=== PATIENT | female | born 1990 | race Caucasian/White ===

== ENCOUNTER 2017-07-03 09:47 | Day surgery (SDC) | payer SELFPAY ==
[~2017-07-03] VITALS: Ht 154.9 cm; Wt 72.6 kg
[~2017-07-03 09:47] MED LIST: ACET-819 PO; CIPR500T4 PO; CYCL10TA9 PO; DCS100C PO; FRS325T PO; IBUP-1780 PO; Ibuprofen PO; NAPR-243 PO; NAPR220C46 PO; NITR100C3 PO; PRD20T PO; PREN-117 PO; TRAM50TA2 PO
--- OUTSIDE RECORDS SUMMARY | 2017-07-03 09:53 | XMS REPORT ---
Author Author MALI SILVERIO [facility] Address [address] [place] [address] Care Team Providers Care Local Owner Operator Truck Driver Name Role Phone MALI SILVERIO Unavailable PROBLEMS Unknown Problems ALLERGIES Substance Reaction Event Type Date Status Tramadol-Acetaminophen Unknown Drug Allergy Oct, Active Hydrocodone Unknown Non Drug Allergy Oct, Active ENCOUNTERS Encounter Location Date Diagnosis [facility] [id number] [place] [address] [phone] Mar, Dental examination Z01.20 [facility] [place] [id number] [place] [address] [phone]- [phone] Feb, Bronchitis J40 [facility] [id number] [place] [address] [phone] Feb, Dental examination Z01.20 [facility] [id number] [place] [address] [phone] Dec, Dental examination Z01.20 [facility] [id number] [place] [address] [phone] Oct, Dental examination Z01.20 [facility] [place] [id number] [place] [address] [phone]- [phone] Oct, [facility] [id number] [place] [address] [phone] Sep, Dental examination Z01.20 [facility] [place] [id number] [place] [address] [phone]- [phone] Jul, Dental examination Z01.20 [facility] [place] [id number] [place] [address] [phone]- 2307 Jul, Open fracture of tooth, initial encounter S02.5XXB [facility] [place] [address], [place] [address] 09 Sep, 2015 Visit for TB skin test Z11.1 [facility] [id number] [place] [address] [id number] 14 May, 2015 Encounter for dental examination Z01.20 [facility] [address] [id number] 23 Oct, 2014 Dental examination V72.2 [facility] [id number] [place] [address] [phone] Sep, Dental examination V72.2 [facility] [place] [id number] [place] [address] [phone]- [phone] 16 Jul, 2014 Urinary frequency 788.41 [facility] [place] [id number] [place] [address] [phone] May, [facility] [place] [id number] [place] [address] [phone]- [phone] May, [facility] [place] [id number] [place] [address] [phone]- [phone] Jan, [facility] [place] [id number] [place] [address] [phone] Jan, [facility] [place] [id number] [place] [address] [phone]- [phone] Jan, [facility] [place] [id number] [place] [address] [phone]- [phone] Jan, [facility] [place] [id number] [address]- 8773 Oct, [facility] [place] [id number] [place] [address] [phone]- [phone] Sep, [facility] [place] [id number] [address] 2956 June, [facility] [place] [id number] [place] [address] [phone]- [phone] Sep, [facility] [place] [address] [facility] [id number] [place] [address] Sep, IMMUNIZATIONS No Known Immunizations SOCIAL HISTORY Never Assessed REASON FOR VISIT kurtis PLAN OF CARE Activity Details Follow Up prn Reason:MARIA ELENA or crown prep/post VITAL SIGNS Height 61 in 2016-10-14 Blood pressure systolic 113 mmHg 2016-10-14 Blood pressure diastolic 72 mmHg 2016-10-14 MEDICATIONS Medication Instructions Dosage Frequency Start Date End Date Duration Status Ibuprofen 200 MG Orally 3 times a day 1 capsule 8h Active RESULTS No Results PROCEDURES Procedure Date Ordered Result Body Site RECEMENT CROWN Oct 14, 2016 INSTRUCTIONS MEDICATIONS ADMINISTERED No Known Medications MEDICAL (GENERAL) HISTORY Type Description Date Medical History Anemia Medical History Back Trouble Surgical History tonsillectomy Surgical History wisdom teeth
--- OUTSIDE RECORDS SUMMARY | 2017-07-03 09:54 | XMS REPORT ---
Author Author ANA MARIA Blanchard Organization [facility] Address [address] [place] [address] Care Team Providers Care Auto Heater Mechanic Name Role Phone iazELICEO ANA MARIA Unavailable PROBLEMS Unknown Problems ALLERGIES Substance Reaction Event Type Date Status Tramadol-Acetaminophen Unknown Drug Allergy Jul, Active Hydrocodone Unknown Non Drug Allergy Jul, Active ENCOUNTERS Encounter Location Date Diagnosis [facility] [address] [id number] Mar, Dental examination Z01.20 [facility] [id number] [place] [address] [phone]- [phone] Feb, Bronchitis J40 [facility] [address] [id number] Feb, Dental examination Z01.20 [facility] [address] [id number] Dec, Dental examination Z01.20 [facility] [id number] [place] [address] [phone] Oct, Dental examination Z01.20 [facility] [id number] [place] [address] 63024- 4082 Oct, [facility] [id number] [place] [address] [phone] Sep, Dental examination Z01.20 [facility] [id number] [place] [address] [phone]- [phone] Jul, Dental examination Z01.20 [facility] [id number] [place] [address] 36707- [phone] Jul, Open fracture of tooth, initial encounter S02.5XXB [facility] [address] [address] 09 Sep, 2015 Visit for TB skin test Z11.1 [facility] [id number] [place] [address] [id number] 14 May, 2015 Encounter for dental examination Z01.20 [facility] [address] [place] [address] [phone] Oct, Dental examination V72.2 [facility] [id number] [place] [address] [phone] Sep, Dental examination V72.2 [facility] [id number] [place] [address] [phone] Jul, Urinary frequency 788.41 [facility] [id number] [place] [address] [phone]- [phone] May, [facility] [id number] [place] [address] [phone] May, [facility] [id number] [place] [address] [phone] Jan, [facility] [id number] [place] [address] [phone]- [phone] Jan, [facility] [id number] [place] [address] 88352- [phone] Jan, [facility] [id number] [place] [address] 46582- [phone] Jan, [facility] [id number] [place] [address] [phone]- [phone] Oct, [facility] [id number] [place] [address] [phone] Sep, [facility] [id number] [place] [address] [phone] June, [facility] [id number] [place] [address] [phone]- [phone] Sep, [facility] [address] [facility] [id number] [place] [address]- 290[address] Sep, IMMUNIZATIONS No Known Immunizations SOCIAL HISTORY Never Assessed REASON FOR VISIT Infected tooth- States the tooth broke several days ago and it very painfull-- Estela Walker RN PLAN OF CARE Activity Details Follow Up 2 Weeks Reason:dental VITAL SIGNS Height 61 in 2016-08-02 Weight 207 lbs 2016-08-02 Temperature 98.9 degrees Fahrenheit 2016-08-02 Heart Rate 78 bpm 2016-08-02 Respiratory Rate 20 2016-08-02 BMI 39.11 kg/m2 2016-08-02 Blood pressure systolic 132 mmHg 2016-08-02 Blood pressure diastolic 78 mmHg 2016-08-02 MEDICATIONS Medication Instructions Dosage Frequency Start Date End Date Duration Status Amoxicillin 500 mg Orally 3 times a day 1 capsule 8h Jul, Aug, 10 day(s) Active Ibuprofen 200 MG Orally 3 times a day 1 capsule 8h Active RESULTS No Results PROCEDURES No Known procedures INSTRUCTIONS MEDICATIONS ADMINISTERED No Known Medications MEDICAL (GENERAL) HISTORY Type Description Date Medical History Anemia Medical History Back Trouble Surgical History tonsillectomy Surgical History wisdom teeth
--- OUTSIDE RECORDS SUMMARY | 2017-07-03 09:54 | XMS REPORT | Clinical Summary ---
Author Author Admin, CAROLEE Organization [employer] Address Unknown Phone Unavailable Allergies, Adverse Reactions, Alerts Allergy Name Reaction Description Start Date Severity Status Provider FENTANYL Critical Active Roel Beaulieu MD TRAMADOL HCL Critical Active Roel Beaulieu MD DEMEROL Critical Active Roel Beaulieu MD HYDROCODONE Critical Active Roel Beaulieu MD Conditions or Problems Problem Name Problem Code Onset Date Status Entry Date Provider Comment Standard Description Annotate Dysuria 788.1 Active Roel Beaulieu MD Dysuria Medication List Medication Instructions Start Date Stop Date Generic Name NDC Status Provider Patient Instruction ALEVE 220 MG ORAL TABS as directed NAPROXEN SODIUM [id number] Active Roel Beaulieu MD Active Vital Signs Date Name Value Unit Range Description blood pressure, diastolic - 8462-4 64 mm[Hg] BP andrade blood pressure, systolic - 8480-6 128 mm[Hg] BP sys height E&M - 8302-2 61 [in_us] Bdy height pulse rate E&M - 8867-4 68 /min Heart rate temperature E&M 98.6 [degF] Body temperature weight E&M - 3141-9 233 [lb_av] Weight Measured Diagnostic Results Date Name Value Unit Range Description Office Visit: CN Dysuria - Chemistry RBC, urine, dipstick non-hemolyzed trace protein, total urine random negative mg/dL Office Visit: CN Dysuria - Urinalysis pH, urine, semiquantitative 5.5 specific gravity, urine 1.020 urinalysis, routine Clean Catch culture status Yes ketones, urine, by test strip negative bilirubin, urine negative glucose, urine, semiquantitative negative urine color yellow appearance, urine clear leukocyte esterase, urine, by dipstick 3+ nitrite, urine, semiquantitative negative urobilinogen, urine, semiquantitative (dipstick) 0.2 protein, urine, semiquantitative (dipstick) negative Encounters Code Encounter Date Provider Facility CPT-00759 Level 3 New Patient 12:28:09 CDT Roel Beaulieu MD [facility] Procedures Code Procedure Name Date Entry Date Standard Description CPT-89583 Bladder Scan 12:28:09 CDT CPT-85359 Urine Dip (Floor Use Only) 16:13:45 CDT
--- OUTSIDE RECORDS SUMMARY | 2017-07-03 09:54 | XMS REPORT | Clinical Summary ---
Author Author Admin, CAROLEE Organization [employer] Address Unknown Phone Unavailable Allergies, Adverse Reactions, [...] MG ORAL TABS as directed NAPROXEN SODIUM [id number] Active Roel Beaulieu MD Active Vital Signs [...] negative Encounters Code Encounter Date Provider Facility CPT-89501 Level 3 New Patient 12:28:09 CDT Roel Beaulieu MD [facility] Procedures Code Procedure Name Date Entry Date Standard Description CPT-86582 Bladder Scan 12:28:09 CDT CPT-72249 Urine Dip (Floor Use Only) 16:13:45 CDT
--- OUTSIDE RECORDS SUMMARY | 2017-07-03 09:54 | XMS REPORT ---
Author Author ISAÍAS MCGOWAN Organization [facility] Address [address] [place] [address] Care Team Providers Care Motor Analyst Name Role Phone ISAÍAS MCGOWAN Unavailable PROBLEMS Unknown Problems ALLERGIES Substance Reaction Event Type Date Status Tramadol-Acetaminophen Unknown Drug Allergy Sep, Active Hydrocodone Unknown Non Drug Allergy Sep, Active ENCOUNTERS Encounter Location Date Diagnosis [facility] [address] [id number] Mar, Dental examination Z01.20 [facility] [id number] [place] [address] 76333- [phone] Feb, Bronchitis J40 [facility] [address] [id number] Feb, Dental examination Z01.20 [facility] [address] [id number] Dec, Dental examination Z01.20 [facility] [id number] [place] [address] [phone] Oct, Dental examination Z01.20 [facility] [id number] [place] [address] 88059- 1883 Oct, [facility] [address] [id number] Sep, Dental examination Z01.20 [facility] [address] [address]54- [phone] Jul, Dental examination Z01.20 [facility] [id number] [place] [address] 15782- 2536 Jul, Open fracture of tooth, initial encounter S02.5XXB [facility] [address] [address]- [address] 09 Sep, 2015 Visit for TB skin test Z11.1 [facility] [id number] [place] [address] [id number] 14 May, 2015 Encounter for dental examination Z01.20 [facility] [address] [id number] 23 Oct, 2014 Dental examination V72.2 [facility] [id number] [place] [address] [id number] 17 Sep, 2014 Dental examination V72.2 [facility] [id number] [place] [address] 66001- [phone] 16 Jul, 2014 Urinary frequency 788.41 [facility] [id number] [place] [address] [phone] May, [facility] [id number] [place] [address] [phone]- [phone] May, [facility] [id number] [place] [address] [phone]- [phone] Jan, [facility] [id number] [place] [address] [phone]- [phone] Jan, [facility] [address] [address]- 6256 Jan, [facility] [id number] [address]- 3359 Jan, [facility] [address] [address]- 4946 Oct, [facility] [id number] [place] [address] [phone]- [phone] Sep, [facility] [address] [address]- 6226 June, [facility] [id number] [place] [address] [phone]- [phone] Sep, [facility] [address] [facility] [id number] [place] [address]- 7977 Sep, IMMUNIZATIONS No Known Immunizations SOCIAL HISTORY Never Assessed REASON FOR VISIT NATHAN PLAN OF CARE VITAL SIGNS Height 61 in 2016-09-27 Blood pressure systolic 136 mmHg 2016-09-27 Blood pressure diastolic 88 mmHg 2016-09-27 MEDICATIONS Medication Instructions Dosage Frequency Start Date End Date Duration Status Ibuprofen 200 MG Orally 3 times a day 1 capsule 8h Active RESULTS No Results PROCEDURES Procedure Date Ordered Result Body Site LTD ORAL EVALUATION - PROBLEM FOCUS Sep 27, 2016 INTRAORL-PERIAPICAL 1 FILM 99983 Sep 27, 2016 INSTRUCTIONS MEDICATIONS ADMINISTERED No Known Medications MEDICAL (GENERAL) HISTORY Type Description Date Medical History Anemia Medical History Back Trouble Surgical History tonsillectomy Surgical History wisdom teeth
--- OUTSIDE RECORDS SUMMARY | 2017-07-03 09:54 | XMS REPORT ---
Author MILE Jones [facility] [employer] Address Unknown Phone Unavailable Care Team Providers Care Cheesemaker Name Role Phone MILE REBOLLEDO CP Unavailable Allergies No Known Allergies Problems Problem Type Condition Code Onset Dates Condition Status Problem examination or test, positive result V72.42 Active Assessment Visit for TB skin test Z11.1 Active Problem Unspecified contraceptive management V25.9 Active Medications No Known Medications Procedures Procedure Coding System Code Date TB INTRADERMAL TEST CPT-4 57242 Sep 15, 2015 Results No Known Results Summary Purpose [employer] Submission
--- OUTSIDE RECORDS SUMMARY | 2017-07-03 09:54 | XMS REPORT ---
Author Author PASTORA GONZALEZ Organization [employer] Address Unknown Phone Unavailable Care Team Providers Care Timber Buyer Name Role Phone PASTORA GONZALEZ CP Unavailable Allergies, Adverse Reactions, Alerts Substance Reaction Event Type Tramadol-Acetaminophen Info Not Available Drug Allergy Hydrocodone Info Not Available Non Drug Allergy Problems Problem Type Condition Code Onset Dates Condition Status Problem examination or test, positive result V72.42 Active Assessment Dental examination V72.2 Active Problem Unspecified contraceptive management V25.9 Active Medications No Known Medications Procedures Procedure Coding System Code Date INTRAORL-PERIAPICAL 1 FILM 07338 CPT-4 D0220 Oct 29, 2014 BITEWING - SINGLE FILM CPT-4 D0270 Oct 29, 2014 LTD ORAL EVALUATION - PROBLEM FOCUS CPT-4 D0140 Oct 29, 2014 EXTRAC ERUPTED TOOTH/EXPOSED ROOT CPT-4 D7140 Oct 29, 2014 Vital Signs Date/Time: Oct 29, 2014 Blood Pressure Diastolic 81 mmHg Blood Pressure Systolic 128 mmHg Results No Known Results Summary Purpose [employer] Submission
--- OUTSIDE RECORDS SUMMARY | 2017-07-03 09:54 | XMS REPORT ---
Author Author CAPRICEMARYANN HUANG Marie [facility] Address Unknown Care Team Providers Care Paper Inspector Name Role Phone MARYANN MUNGUIA Unavailable PROBLEMS Unknown Problems ALLERGIES No Information ENCOUNTERS Encounter Location Date Diagnosis [facility] [address] [id number] Mar, Dental examination Z01.20 [facility] [address] [address]- [phone] Feb, Bronchitis J40 [facility] [address] [id number] Feb, Dental examination Z01.20 [facility] [address] [id number] Dec, Dental examination Z01.20 [facility] [address] [id number] Oct, Dental examination Z01.20 [facility] [address] 77[address]- 0870 Oct, [facility] [address] [id number] Sep, Dental examination Z01.20 [facility] [id number] [place] [address] 93075- [phone] Jul, Dental examination Z01.20 [facility] [address] 53480- 4929 Jul, Open fracture of tooth, initial encounter S02.5XXB [facility] [id number] [place] [address] 98917- [phone] Sep, Visit for TB skin test Z11.1 [facility] [address] [id number] 14 May, 2015 Encounter for dental examination Z01.20 [facility] [id number] [place] [address] [id number] 23 Oct, 2014 Dental examination V72.2 [facility] [address] [id number] 17 Sep, 2014 Dental examination V72.2 [facility] [id number] [place] [address] 42465- [phone] 16 Jul, 2014 Urinary frequency 788.41 [facility] [id number] [place] [address] 13699- [phone] 14 May, 2014 [facility] [id number] [place] [address] 23034- [phone] May, [facility] [id number] [place] [address] [phone]- [phone] Jan, [facility] [id number] [place] [address] [phone] Jan, [facility] [id number] [place] [address] [phone]- [phone] Jan, [facility] [id number] [place] [address] [phone]- [phone] Jan, [facility] [address], [place] [address]- 8356 Oct, [facility] [address], [place] [address]- 4816 Sep, [facility] [id number] [place] [address] [phone]- 6546 June, [facility] [id number] [place] [address] 71181- [phone] Sep, [facility] [address], [place] [address]- 9456 Sep, IMMUNIZATIONS No Known Immunizations SOCIAL HISTORY Never Assessed REASON FOR VISIT Requests return call PLAN OF CARE VITAL SIGNS MEDICATIONS No Known Medications RESULTS No Results PROCEDURES No Known procedures INSTRUCTIONS MEDICATIONS ADMINISTERED No Known Medications MEDICAL (GENERAL) HISTORY Type Description Date Medical History Anemia Medical History Back Trouble Surgical History tonsillectomy Surgical History wisdom teeth
--- OUTSIDE RECORDS SUMMARY | 2017-07-03 09:54 | XMS REPORT ---
Author Author MANEUL PAGE Organization [employer] Address Unknown Phone Unavailable Care Team Providers Care Capital Project Engineer Name Role Phone MANUEL PAGE CP Unavailable Allergies No Known Allergies Problems Problem Type Condition ICD-9 Code Onset Dates Condition Status Problem examination or test, positive result V72.42 Active Assessment Dental examination V72.2 Active Problem Unspecified contraceptive management V25.9 Active Medications No Known Medications Procedures Procedure Coding System Code Date INTRAORL-PERIAPICAL 1 FILM 58984 CPT-4 D0220 Sep 22, 2014 INTRAORL-PERIAPICAL EA ADD FILM CPT-4 D0230 Sep 22, 2014 PERIODIC ORAL EXAMINATION CPT-4 D0120 Sep 22, 2014 TOPICAL FLUORIDE VARNISH CPT-4 D1206 Sep 22, 2014 BITEWINGS - FOUR FILMS CPT-4 D0274 Sep 22, 2014 INTRAORL-PERIAPICAL EA ADD FILM CPT-4 D0230 Sep 22, 2014 PROPHYLAXIS - ADULT CPT-4 D1110 Sep 22, 2014 PANORAMIC FILM SEE ALSO CODE 94605 CPT-4 D0330 Sep 22, 2014 Results No Known Results Summary Purpose [employer] Submission
[2017-07-03] MEDS ORDERED: ONDANSETRON 4 MG/2 ML (SDV) Z0FRAN ONE ×2 (10:33→13:19)
[2017-07-03] MEDS ORDERED: LACTATED RINGERS 1,000 ML IV ONE (10:51)
--- NOTE | 2017-07-03 10:55 | ED Abdominal Pain ---
General Chief Complaint: Abdominal/GI Problems Stated Complaint: N/D R SIDE PAIN Nursing Triage Note: PT CO OF R LOWER ABD PAIN SINCE LAST PM. PT CO OF ABD PAIN 09/15, N/V/D SINCE LAST PM. Sepsis Screen: No Definite Risk Source of Information: Patient Exam Limitations: No Limitations History of Present Illness Date Seen by Provider: July 03, 2017 Time Seen by Provider: 10:47 Initial Comments The patient presents to ER by private conveyance with a chief complaint that for one day now she's been having some abdominal pain starts in her umbilicus and radiates to her right lower quadrant. It hurts when she moves. She's been having loose diarrhea. She has no history of diverticulosis or surgical history to her abdomen. She does not have any significant medical history nor take any medicines. She has no appetite and has had nausea without vomiting. She has not taken anything for the pain. She has a Mirena in place and just finished her period. Allergies and Home Medications Allergies Coded Allergies: hydrocodone (Verified Allergy, Intermediate, 12/25/12) butorphanol (Verified Allergy, Unknown, hives, 04/27/13) codeine (Verified Allergy, Unknown, 04/27/13) Home Medications Ciprofloxacin HCl 500 Mg Tablet, 500 MG PO BID Prescribed by: DEBBIE KEENAN on 12/15/15 1824 Ibuprofen 800 Mg Tablet, 800 MG PO Q8H PRN for PAIN Prescribed by: YIFAN TADEO on 04/16/15 1446 Naproxen Sodium 220 Mg Capsule, 220 MG PO BID, (Reported) Patient Home Medication List Home Medication List Reviewed: Yes Review of Systems Constitutional: No chills, No diaphoresis, No fever, No malaise EENTM: No Blurred Vision, No Double Vision Respiratory: Denies Cough, Denies Shortness of Air Cardiovascular: Denies Chest Pain, Denies Edema Gastrointestinal: See HPI; Denies Abdomen Distended; Abdominal Pain; Denies Constipated; Diarrhea, Nausea; Denies Vomiting Genitourinary: Denies Burning, Denies Drainage, Denies Frequency Musculoskeletal: No back pain, No gout Past Tggjsft-Ezubej-Xpfjfx Hx Patient Social History Alcohol Use: Denies Use Recreational Drug Use: No Smoking Status: Current Everyday Smoker Type Used: Cigarettes Recent Foreign Travel: No Contact w/Someone Who Travel: No Recent Infectious Disease Expo: No Recent Hopitalizations: No Physical Abuse: No Sexual Abuse: No Immunizations Up To Date Tetanus Booster (TDap): Less than 5yrs Date of Influenza Vaccine: Nov 21, 2012 Past Medical History Surgeries: Yes (wisdom teeth excision) Tonsillectomy Respiratory: No Cardiac: No Neurological: No : No Last Menstrual Period: July 01, 2017 Reproductive Disorders: No Female Reproductive Disorders: Denies Sexually Transmitted Disease: Yes (chlamydia) HIV/AIDS: No Gastrointestinal: No Musculoskeletal: No Endocrine: No Cancer: No Psychosocial: No Nursing Suicide Risk Score: 0 Integumentary: No Blood Disorders: No Family Medical History Alzheimer's disease (PGM) Cancer (uncle) Diabetes mellitus (PGF) FH: depression (mother) FH: hyperlipidemia (mother, father, PGF) Hypertension (father, PGF) Substance abuse (uncle) Cancer, Diabetes Physical Exam Vital Signs Vital Signs - First Documented 07/03/17 10:30 Temp 98.1 Pulse 85 Resp 18 B/P (MAP) 131/85 (100) Pulse Ox 100 Capillary Refill : Less Than 3 Seconds General Appearance: WD/WN, mild distress HEENT: PERRL/EOMI, pharynx normal Neck: non-tender, full range of motion, supple, normal inspection Respiratory: chest non-tender, lungs clear, normal breath sounds, no respiratory distress, no accessory muscle use Cardiovascular: normal peripheral pulses, regular rate, rhythm, no edema Peripheral Pulses: 2+ Dorsalis Pedis (R), 2+ Left Dors-Pedis (L), 2+ Radial Pulses (R), 2+ Radial Pulses (L) Gastrointestinal: normal bowel sounds, rebound (RLQ Finlayson's point), tenderness (right lower quadrant). Follicle with positive Rovsing and mesenteric signs.) Extremities: non-tender, normal inspection, normal capillary refill Back: normal inspection, no CVA tenderness Neurologic/Psychiatric: alert, oriented x 3 Skin: normal color, warm/dry Progress/Results/Core Measures Results/Orders Lab Results Laboratory Tests Test 07/03/17 10:35 Range/Units White Blood Count 12.2 H 4.3-11.0 10^3/uL Red Blood Count 4.77 4.35-5.85 10^6/uL Hemoglobin 14.6 11.5-16.0 G/DL Hematocrit 43 35-52 % Mean Corpuscular Volume 91 80-99 FL Mean Corpuscular Hemoglobin 31 25-34 PG Mean Corpuscular Hemoglobin Concent 34 32-36 G/DL Red Cell Distribution Width 13.2 10.0-14.5 % Platelet Count 274 130-400 10^3/uL Mean Platelet Volume 11.0 H 7.4-10.4 FL Neutrophils (%) (Auto) 76 H 42-75 % Lymphocytes (%) (Auto) 16 12-44 % Monocytes (%) (Auto) 5 0-12 % Eosinophils (%) (Auto) 3 0-10 % Basophils (%) (Auto) 0 0-10 % Neutrophils # (Auto) 9.2 H 1.8-7.8 X 10^3 Lymphocytes # (Auto) 2.0 1.0-4.0 X 10^3 Monocytes # (Auto) 0.6 0.0-1.0 X 10^3 Eosinophils # (Auto) 0.4 H 0.0-0.3 10^3/uL Basophils # (Auto) 0.0 0.0-0.1 10^3/uL Sodium Level 140 135-145 MMOL/L Potassium Level 4.0 3.6-5.0 MMOL/L Chloride Level 108 H 98-107 MMOL/L Carbon Dioxide Level 22 21-32 MMOL/L Anion Gap 10 5-14 MMOL/L Blood Urea Nitrogen 7 7-18 MG/DL Creatinine 0.78 0.60-1.30 MG/DL Estimat Glomerular Filtration Rate > 60 BUN/Creatinine Ratio 9 Glucose Level 95 70-105 MG/DL Calcium Level 9.6 8.5-10.1 MG/DL Magnesium Level 2.4 1.8-2.4 MG/DL Total Bilirubin 0.5 0.1-1.0 MG/DL Aspartate Amino Transf (AST/SGOT) 14 5-34 U/L Alanine Aminotransferase (ALT/SGPT) 11 0-55 U/L Alkaline Phosphatase 62 40-136 U/L Total Protein 7.5 6.4-8.2 GM/DL Albumin 4.7 H 3.2-4.5 GM/DL My Orders Orders - AARTI BRYAN Ondansetron Injection (Zofran Injectio (07/03/17 10:33) Ct Abd/Pelv W (Appendicitis) (07/03/17 10:51) Saline Lock/Iv-Start (07/03/17 10:51) Cbc With Automated Diff (07/03/17 10:51) Comprehensive Metabolic Panel (07/03/17 10:51) Magnesium (07/03/17 10:51) Saline Lock/Iv-Start (07/03/17 10:51) Lactated Ringers (Lr 1000 Ml Iv Solution (07/03/17 10:51) Urine Bedside (07/03/17 10:51) Ketorolac Injection (Toradol Injection) (07/03/17 11:00) Ondansetron Injection (Zofran Injectio (07/03/17 11:00) Iohexol Injection (Omnipaque 350 Mg/Ml 1 (07/03/17 11:15) Ns (Ivpb) (Sodium Chloride 0.9%) (07/03/17 11:15) Ua Culture If Indicated (07/03/17 11:23) Medications Given in ED Current Medications Medications Dose Ordered Sig/Haroldo Route Start Time Stop Time Status Last Admin Dose Admin Iohexol 100 ml ONCE ONCE IV 07/03/17 11:15 07/03/17 11:16 DC 07/03/17 11:23 100 ML Ketorolac Tromethamine 15 mg ONCE ONCE IVP 07/03/17 11:00 07/03/17 11:01 DC 07/03/17 11:08 15 MG Lactated Ringer's 1,000 ml @ 0 mls/hr Q0M ONCE IV 07/03/17 10:51 07/03/17 10:54 DC 07/03/17 11:08 1,000 MLS/HR Ondansetron HCl 4 mg STK-MED ONCE .ROUTE 07/03/17 10:33 07/03/17 10:38 DC 07/03/17 10:42 4 MG Sodium Chloride 250 ml ONCE ONCE IV 07/03/17 11:15 07/03/17 11:16 DC 07/03/17 11:23 80 ML Vital Signs/I&O 07/03/17 10:30 Temp 98.1 Pulse 85 Resp 18 B/P (MAP) 131/85 (100) Pulse Ox 100 Blood Pressure Mean: 100 Urine -Bedside: Negative Diagnostic Imaging Diagonstic Imaging: CT (C C) Plain Films/CT/US/NM/MRI: abdomen, pelvis Comments Positive for appendicitis Reviewed: Reviewed by Me, Discussed w/Radiologist (Dr Lakhani) Consults : Consulting Physician: A Departure Communication (Admissions) Time/Spoke to Admitting Phy: 11:44 Elissa: He will see the pt Impression Primary Impression: Appendicitis Qualified Codes: K35.2 - Acute appendicitis with generalized peritonitis Disposition: ADMITTED INPATIENT Condition: Stable Admissions Decision to Admit Reason: Admit from ER (General) Decision to Admit/Date: July 03, 2017 Time/Decision to Admit Time: 11:45 Departure-Patient Inst. Referrals: NO,LOCAL PHYSICIAN (PCP/Family) Primary Care Physician Copy Copies To 1: LETICIA MCCORD TITUS J July 03, 2017 10:54
[2017-07-03 10:59] LABS: BASOPHILS % (AUTO) 0 % (0-10); EOSINOPHILS # (AUTO) 0.4 10^3/uL (0.0-0.3); EOSINOPHILS % (AUTO) 3 % (0-10); HEMATOCRIT 43 % (35-52); HEMOGLOBIN 14.6 G/DL (11.5-16.0); LYMPHOCYTES % (AUTO) 16 % (12-44); MEAN CORPUSCULAR HEMOGLOBIN 31 PG (25-34); MEAN CORPUSCULAR HGB CONC 34 G/DL (32-36); MEAN CORPUSCULAR VOLUME 91 FL (80-99); MONOCYTES # (AUTO) 0.6 X 10^3 (0.0-1.0); MONOCYTES % (AUTO) 5 % (0-12); NEUTROPHILS # (AUTO) 9.2 X 10^3 (1.8-7.8); NEUTROPHILS % (AUTO) 76 % (42-75); PLATELET COUNT 274 10^3/uL (130-400); RED BLOOD COUNT 4.77 10^6/uL (4.35-5.85); RED CELL DISTRIBUTION WIDTH 13.2 % (10.0-14.5); WHITE BLOOD COUNT 12.2 10^3/uL (4.3-11.0)
[2017-07-03] MEDS ORDERED: ONDANSETRON 4 MG/2 ML (SDV) Z0FRAN IVP ONE (11:00)
[2017-07-03] MEDS ORDERED: KETOROLAC 30 MG/ML VIAL IVP ONE (11:00)
[2017-07-03 11:09] LABS: ALANINE AMINOTRANSFERASE 11 U/L (0-55); ALBUMIN 4.7 GM/DL (3.2-4.5); ALKALINE PHOSPHATASE 62 U/L (40-136); BILIRUBIN,TOTAL 0.5 MG/DL (0.1-1.0); BUN/CREATININE RATIO 9; CALCIUM 9.6 MG/DL (8.5-10.1); CARBON DIOXIDE 22 MMOL/L (21-32); CHLORIDE 108 MMOL/L (98-107); CREATININE SERUM 0.78 MG/DL (0.60-1.30); GFR ESTIMATED > 60; GLUCOSE 95 MG/DL (70-105); MAGNESIUM 2.4 MG/DL (1.8-2.4); SODIUM 140 MMOL/L (135-145); TOTAL PROTEIN 7.5 GM/DL (6.4-8.2)
[2017-07-03] MEDS ORDERED: NS 250 ML (IVPB) BAG IV ONE (11:15)
[2017-07-03] MEDS ORDERED: IOHEXOL 350 MG/ML 100 ML (OMNIPAQUE 350) VIAL IV ONE (11:15)
[2017-07-03 11:27] LABS: BILIRUBIN,URINE NEGATIVE (NEGATIVE); CLARITY,URINE CLEAR; COLOR,URINE YELLOW; GLUCOSE, URINE (UA) NEGATIVE (NEGATIVE); KETONES,URINE NEGATIVE (NEGATIVE); LEUKOCYTE ESTERASE ,URINE 1+ (NEGATIVE); NITRITE,URINE NEGATIVE (NEGATIVE); PH,URINE 8 (5-9); PROTEIN,URINE NEGATIVE (NEGATIVE); UROBILINOGEN,URINE NORMAL (NORMAL)
[2017-07-03 11:43] LABS: BACTERIA,URINE TRACE /HPF; RBC,URINE RARE /HPF
--- NOTE | 2017-07-03 11:58 | Diagnostic Imaging Report ---
PROCEDURE: CT abdomen and pelvis with contrast, rule out appendicitis. TECHNIQUE: Multiple contiguous axial images were obtained through the abdomen and pelvis after the administration of intravenous contrast. INDICATION: Right-sided pain. There are no prior studies available for comparison. The appendix is enlarged measuring 14 mm (normal 8 mm or less). There is also an appendicolith present. Furthermore there is distortion of periappendiceal fat. The combination of these findings would be consistent with acute appendicitis. No other acute abnormality of the abdomen or pelvis is noted. There is no pelvic mass but there is a small amount of nonspecific free fluid in the pelvis. Uterus is not enlarged. There is an IUD within the uterus, the IUD seems to be in good position. The urinary bladder is grossly unremarkable. The liver, where visualized, is within normal limits. The dome of the liver is not included. The spleen, pancreas, adrenals, gallbladder, kidneys, aorta and inferior vena cava show no sign of an acute abnormality. The stomach is partially filled with fluid and consequently difficult to assess. The lung bases are generally clear. The bone windows show no evidence for a fracture or for destructive lesion. IMPRESSION: 1. The findings would be consistent with acute appendicitis. Clinical followup is recommended. There is also a small amount of nonspecific free fluid in the pelvis. This may related to the suspected inflammation of the appendix. 2. There is an IUD within the uterus and the IUD seems to be in good position. These results were discussed with Dr. Ying in the ER at the time of this dictation. CRITICAL FINDINGS Dictated by: Dictated on workstation # [id number]
--- NOTE | 2017-07-03 12:14 | Consultation ---
History of Present Illness History of Present Illness Patient Consulted On(alexis/time) 07/03/17 12:12 Time Seen by Provider: 11:32 History of Present Illness Surgery asked to consult regarding RLQ pain, appendicitis. HPI per ED: The patient presents to ER by private conveyance with a chief complaint that for one day now she's been having some abdominal pain starts in her umbilicus and radiates to her right lower quadrant. It hurts when she moves. She's been having loose diarrhea. She has no history of diverticulosis or surgical history to her abdomen. She does not have any significant medical history nor take any medicines. She has no appetite and has had nausea without vomiting. She has not taken anything for the pain. She has a Mirena in place and just finished her period. Pt has never had pain like this before, rates it as 8 out of 10. Denies radiation of the pain. Pain was bad on car ride over and she is trying to remain still. Pain started yesterday but has been getting progressively worse. Allergies and Home Medications Allergies Coded Allergies: hydrocodone (Verified Allergy, Intermediate, 12/25/12) butorphanol (Verified Allergy, Unknown, hives, 04/27/13) codeine (Verified Allergy, Unknown, 04/27/13) Home Medications Ciprofloxacin HCl 500 Mg Tablet, 500 MG PO BID Prescribed by: DEBBIE KEENAN on 12/15/15 1824 Ibuprofen 800 Mg Tablet, 800 MG PO Q8H PRN for PAIN Prescribed by: YIFAN TADEO on 04/16/15 1446 Naproxen Sodium 220 Mg Capsule, 220 MG PO BID, (Reported) Patient Home Medication List Home Medication List Reviewed: Yes Past Wamyeae-Sasukj-Gyhhbb Hx Patient Social History Alcohol Use: Denies Use Recreational Drug Use: No Smoking Status: Current Everyday Smoker Type Used: Cigarettes Recent Foreign Travel: No Contact w/Someone Who Travel: No Recent Infectious Disease Expo: No Recent Hopitalizations: No Immunizations Up To Date Tetanus Booster (TDap): Less than 5yrs Date of Influenza Vaccine: Nov 21, 2012 Surgeries History of Surgeries: Yes (wisdom teeth excision) Surgeries: Tonsillectomy Respiratory History of Respiratory Disorde: No Cardiovascular History of Cardiac Disorders: No Neurological History of Neurological Disord: No Reproductive System : No Hx Reproductive Disorders: No Sexually Transmitted Disease: Yes (chlamydia) HIV/AIDS: No Female Reproductive Disorders: Denies Gastrointestinal History of Gastrointestinal Di: No Musculoskeletal History of Musculoskeletal Dis: No Endocrine History of Endocrine Disorders: No Cancer History of Cancer: No Psychosocial History of Psychiatric Problem: No Integumentary History of Skin or Integumenta: No Blood Transfusions History of Blood Disorders: No Family Medical History Significant Family History: Cancer (half sister and mother had Breast cancer), Diabetes, Hypertension (father) Family Medial History: Alzheimer's disease (PGM) Cancer (uncle) Diabetes mellitus (PGF) FH: depression (mother) FH: hyperlipidemia (mother, father, PGF) Hypertension (father, PGF) Substance abuse (uncle) Review of Systems-General Constitutional: chills, diaphoresis, weakness EENTM: No blurred vision, No double vision, No mouth pain, No mouth swelling, No epistaxis, No throat pain, No throat swelling Respiratory: No cough, No dyspnea on exertion Cardiovascular: No chest pain, No edema, No palpitations Gastrointestinal: see HPI; No jaundice, No melena Musculoskeletal: No back pain, No joint pain, No joint swelling Skin: No change in color, No change in hair/nails Psychiatric/Neurological: Denies Anxiety, Denies Depressed, Denies Seizure, Denies Tingling Other pt denies any abnormal bleeding or bruising, no heat or cold intolerance Physical Exam-General Problems Physical Exam Vital Signs Vital Signs - First Documented 07/03/17 10:30 Temp 98.1 Pulse 85 Resp 18 B/P (MAP) 131/85 (100) Pulse Ox 100 Capillary Refill : Less Than 3 Seconds General Appearance: WD/WN, mild distress Eyes: Bilateral Eye PERRL, Bilateral Eye EOMI HEENT: pharynx normal; No scleral icterus (R), No scleral icterus (L), No pale conjunctivae (R), No pale conjunctivae (L) Neck: non-tender, full range of motion, normal inspection Respiratory: chest non-tender, lungs clear, normal breath sounds, no respiratory distress, no accessory muscle use Cardiovascular: regular rate, rhythm, no edema, no JVD, no murmur Gastrointestinal: normal bowel sounds, soft, no organomegaly, guarding ( voluntary), tenderness (RLQ with palpation), hernia (small umbilical hernia) Back: no CVA tenderness, no vertebral tenderness Extremities: normal range of motion, non-tender, normal inspection, no pedal edema, no calf tenderness, normal capillary refill Neurologic/Psychiatric: seed yeast operator II-XII nml as tested, no motor/sensory deficits, normal mood/affect, oriented x 3 Skin: normal color, warm/dry Lymphatic: no adenopathy (neck, axilla or groin) Data Review Labs Laboratory Tests 07/03/17 10:35: White Blood Count 12.2H, Red Blood Count 4.77, Hemoglobin 14.6, Hematocrit 43, Mean Corpuscular Volume 91, Mean Corpuscular Hemoglobin 31, Mean Corpuscular Hemoglobin Concent 34, Red Cell Distribution Width 13.2, Platelet Count 274, Mean Platelet Volume 11.0H, Neutrophils (%) (Auto) 76H, Lymphocytes (%) (Auto) 16, Monocytes (%) (Auto) 5, Eosinophils (%) (Auto) 3, Basophils (%) (Auto) 0, Neutrophils # (Auto) 9.2H, Lymphocytes # (Auto) 2.0, Monocytes # (Auto) 0.6, Eosinophils # (Auto) 0.4H, Basophils # (Auto) 0.0, Urine Color YELLOW, Urine Clarity CLEAR, Urine pH 8, Urine Specific Spring 1.010L, Urine Protein NEGATIVE , Urine Glucose (UA) NEGATIVE, Urine Ketones NEGATIVE, Urine Nitrite NEGATIVE, Urine Bilirubin NEGATIVE, Urine Urobilinogen NORMAL, Urine Leukocyte Esterase 1+ H, Urine RBC (Auto) 4+H, Urine RBC RARE, Urine WBC 2-5, Urine Squamous Epithelial Cells 5-10, Urine Crystals NONE, Urine Bacteria TRACE, Urine Casts NONE, Urine Mucus NEGATIVE, Urine Culture Indicated NO, Sodium Level 140, Potassium Level 4.0, Chloride Level 108H, Carbon Dioxide Level 22, Anion Gap 10 , Blood Urea Nitrogen 7, Creatinine 0.78, Estimat Glomerular Filtration Rate > 60, BUN/Creatinine Ratio 9, Glucose Level 95, Calcium Level 9.6, Magnesium Level 2.4, Total Bilirubin 0.5, Aspartate Amino Transf (AST/SGOT) 14, Alanine Aminotransferase (ALT/SGPT) 11, Alkaline Phosphatase 62, Total Protein 7.5, Albumin 4.7H Assessment/Plan Assessment/Plan Assessment/Plan Acute Appendicitis Pt has RLQ pain, elevated WBC and CT read as positive for acute appendicitis. Pt will be given IVF, IV ABX animation director to OR, pain meds, anti-emetics and consent for Lap appy possible open. Discussed procedure with pt including risks and complication not limited to pain, bleeding, infection, scar and damage to bowel or need for further procedure. All questions answered to her satisfaction. LETICIA MCCORD DO July 03, 2017 12:14
[2017-07-03] MEDS ORDERED: ceFAZolin 2 GM IV Premixed 50 ML IV ONE (12:15)
[2017-07-03] MEDS ORDERED: proPOfol 200 MG/20 ML (DIPRIVAN) VIAL IV ONE (12:27)
[2017-07-03] MEDS ORDERED: MIDAZOLAM 2 MG/2 ML (VERSED) VIAL ONE (12:27)
[2017-07-03] MEDS ORDERED: fentaNYL INJECTION 100 MCG/2 ML AMP ONE (12:27)
[2017-07-03] MEDS ORDERED: LIDOCAINE PF 2% 5 ML (XYLOCAINE) VIAL ONE (12:27)
[2017-07-03] MEDS ORDERED: LIDOCAINE/EPI 1%-1:200,000 (XYLOCAINE) 10 ML VIAL ONE (12:42)
[2017-07-03] MEDS ORDERED: LACTATED RINGERS 1,000 ML IV PRN (12:45)
[2017-07-03] MEDS ORDERED: morphine INJ 10 MG/ML 1ML (SYR OR VIAL) IVP PRN (12:45)
[2017-07-03] MEDS ORDERED: ONDANSETRON 4 MG/2 ML (SDV) Z0FRAN IVP PRN (12:45)
[2017-07-03] MEDS ORDERED: MEPERIDINE (DEMEROL) INJ 50 MG/ML IVP PRN (12:45)
[2017-07-03] MEDS ORDERED: SEVOFLURANE (ULTANE) 15 ML INHAL SOLN ONE ×3 (13:19→13:26)
[2017-07-03] MEDS ORDERED: GLYCOPYRROLATE 0.2 MG/ML (ROBINUL) 2 ML VIAL ONE (13:19)
[2017-07-03] MEDS ORDERED: ROCURONIUM 10 MG/ML 5 ML SYRINGE IV ONE (13:19)
[2017-07-03] MEDS ORDERED: NEOSTIGMINE 1 MG/ML 5 ML SYRINGE ONE (13:19)
[2017-07-03] MEDS ORDERED: DEXAMETHASONE 10 MG/ML (DECADRON) 1 ML VIAL ONE (13:19)
--- NOTE | 2017-07-03 13:36 | Progress Note-Post Operative ---
Post-Operative Progess Note Surgeon (s)/Semiconductor Packages Platemaker (s) Surgeon LETICIA MCCORD DO Semiconductor Packages Platemaker: none Pre-Operative Diagnosis Acute Appy Post-Operative Diagnosis same Procedure & Operative Findings Date of Procedure 07/03/17 Procedure Performed/Findings Lap Appy Anesthesia Type GET Estimated Blood Loss Estimated blood loss (mL): scant Specimens/Packing Specimens Removed LETICIA Carbajal DO July 03, 2017 13:36
--- NOTE | 2017-07-03 13:39 | Discharge Inst-Surgical ---
Discharge Inst-Surgical Depart Medication/Instructions New, Converted or Re-Newed RX: RX Given to Pt/Family Patient Instructions Follow up Appt: Make appointment for 1 week. [phone] Instructions: No lifting greater than 10 pounds. No strenuous activity. May shower in 24 hours, no tub bath or soaking. Use incentive spirometer at home as directed. No Smoking Skin/Wound Care: May remove bandages in am. You need to leave the Dermabond on over incision it will fall off on its own. Symptoms to Report: Appetite Changes, Extremity Discoloration, Numbness/Tingling, Swelling Increased , Bleeding Excessive, Eyesight Changes, Pain Increased, Urine Color Change, Constipation(Persistent), Fever over 101 degree F, Pain/Pressure in chest, Urinating Difficulty, Cough Up/Vomit Blood, Heart Beat Irreg/Pounding, Pain/ Pressure in jaw, Vaginal Bleeding Increase, Cramps in feet or legs, Lightheadedness, Pain/Pressure in shoulder, Diarrhea(Persistent), Memory Changes Suddenly, Questions/Concerns, Weight gain consecutive days, Dizziness/ Fainting, Nausea/Vomiting, Shortness of Breath, Weight gain over 2 pounds If questions or concerns contact your physician Or seek help at emergency department. Activity Activity as Tolerated: Yes Activity Instructions: Avoid Pulling & Pushing, Avoid Stress to Incision Driving Instructions: No Driving/Refer to Dr. Pruitt Discharge Diet: No Restrictions Diet After 24 Hours: Clear Liquid if Nauseous If Any Problems/Questions/Issu: Contact Your Physician, Go to Emergency Room, Go to Quick Care Skin/Wound Care Infection Signs and Symptoms: Increased Redness, Foul Odor of Wound, Increased Drainage, Skin Itchy or Has a Rash, Increased Swelling, Temperature Above 101 F Wound Care Comment: heating pad to shoulder or neck tonight for pain Bathing Instructions: Shower Stitches/Orting/Dermabond Dis: Dermabond Ice Pack: Ice On and Off Site LETICIA MCCORD DO July 03, 2017 13:39
[2017-07-03] MEDS ORDERED: TRAM50TA2 PO (13:40)
[2017-07-03 15:08] VITALS: BP 113/75
[2017-07-03 16:25] VITALS: BP 113/75
--- NOTE | 2017-07-03 16:31 | OPERATIVE REPORT ---
DATE OF SERVICE: PREOPERATIVE DIAGNOSIS: Acute appendicitis. POSTOPERATIVE DIAGNOSIS: Acute appendicitis. PROCEDURE: Laparoscopic appendectomy. SURGEON: Jake Bowers DO. MAINTENANCE ASSOCIATE: None. ANESTHESIA: General endotracheal tube. SPECIMEN: Appendix. BLOOD LOSS: Scant. FLUIDS: Per anesthesia. POSTOPERATIVE CONDITION: Stable. INDICATION FOR PROCEDURE: The patient is a 26-year-old female with a right lower quadrant pain, elevated white count and a CT which showed acute appendicitis. FINDINGS: The patient had acute appendicitis. PROCEDURE NOTE: After informed consent was obtained, the patient was brought to the operating room, placed on the table in supine position, sterilely prepped and draped in normal fashion. Local lidocaine used to infiltrate the skin above the umbilicus. Made an incision with a #11 blade, carried down to the skin into the subcutaneous tissue and deepened down to the subcutaneous tissue with Bovie electrocautery down to fascia. Fascia was incised with Bovie electrocautery and bluntly entered the abdomen, swept a finger around, placed 0 Vicryl [id number] suture, then placed an 11 mm trocar port under direct visualization. Created pneumoperitoneum and placed 2 more ports in normal fashion using local lidocaine, 11 blade for stab incision and the VersaStep system, all done under direct visualization, one suprapubically and one left lower quadrant. The patient was then placed slightly Trendelenburg and rotated to left, able to visualize the cecum and then traced this over to the appendix. Appendix was very distended especially in the middle and then had some fibrinous material and adhesions at the tip, carefully able to grasp the appendix and then carefully started dissecting the mesoappendix, had to actually go from the cecum out because it was almost a retrocecal appendix, grasping the mesoappendix with a LigaSure, clamping, coagulating and transecting in a stepwise fashion coming all the way across the mesoappendix to free the appendix up off of the tissues that was only attached to the cecum, switched to a 5 mm camera, brought the Endo-OUMOU to the supraumbilical port, placed across the base of the appendix, clamped and fired, thereby transecting the appendix. Placed a bag in the abdomen, placed the appendix in the bag and then removed this through a supraumbilical incision. Placed the port back in the abdomen, copiously irrigated with normal saline and suctioned this out, took a picture of the staple line, everything looked good, no other obvious pathology. Suctioned out all fluid. Placed the patient in supine and then allowed the pneumoperitoneum to escape as well as suctioned out. Removed all ports under direct visualization. Copiously irrigated all incisions with normal saline. Closed the supraumbilical incision with 0 Vicryl [id number] suture. Closed the fascia with 0 Vicryl [id number]-[id number] suture previously placed and then closed the incision closing the 2 small 5 mm incisions with a single interrupted 4-0 undyed Monocryl subcuticular stitch. Closed the supraumbilical incision with 3 interrupted 4-0 undyed Monocryl subcuticular stitches. The area was cleaned and dried. Dermabond was placed. The patient was then transferred to recovery room in stable condition. Sponge and needle count correct at the end of the case. Job ID: [id number] DocumentID: [id number] Dictated Date: 07/03/2017 13:35:01 [employer]electric Plant Structural Engineer Date: 07/03/2017 14:38:49 Dictated By: JAKE BOWERS DO
--- NOTE | 2017-07-04 11:44 | Anesthesia-General Post-Op ---
General Patient Condition Mental Status/LOC: Same as Preop Cardiovascular: Satisfactory Nausea/Vomiting: Absent Respiratory: Satisfactory Pain: Controlled Complications: Absent Post Op Complications Complications None Follow Up Care/Instructions Patient Instructions None needed. Anesthesia/Patient Condition Patient Condition Patient is doing well, no complaints, stable vital signs, no apparent adverse anesthesia problems. No complications reported per nursing. KENNETH LIN CRNA July 04, 2017 11:44
== END 2017-07-03 16:31 | disposition home or self-care (01) ==
LOC: EDUNIT# 09:47 → ER 09:49 → SDC 12:17 → 4TH 14:40 → SDC 16:31
PROVIDERS: ATTEND Surgery
DX: K35.80 Unspecified acute appendicitis (principal); Z80.3 Family history of malignant neoplasm of breast
CPT/HCPCS: 36415; 74177; 80053; 81000; 83735; 84703; 85025; 88304; 96361; 96374; 96375